=== PATIENT | female | born 2000 | race African-American/Black ===

== ENCOUNTER 2021-03-16 11:52 | Emergency (ER) | payer SELFPAY ==
[~2021-03-16] VITALS: Ht 167 cm; Wt 61.0 kg
--- NOTE | 2021-03-16 12:11 | ED Abdominal Pain ---
General Chief Complaint: Abdominal/GI Problems Stated Complaint: LTQ PAIN Source of Information: Patient Exam Limitations: No Limitations History of Present Illness Date Seen by Provider: Mar 16, 2021 Time Seen by Provider: 11:55 Initial Comments 20yoF with no significant PMH coming in due to LLQ pain. This started roughly 2 days ago and has been intermittent. The pain is sharp, and a little bit better with Tylenol which she last took this morning. She is on her period currently. She says she has had a UTI in the past but did not feel like this. She is sexually active, but uses protection every time, and denies any unusual vaginal discharge or smell. Denies any burning with urination, flank pain, chest pain, shortness of breath, nausea, vomiting, diarrhea, fever, chills, weakness, numbness, or any other concerns. She says she drank alcohol on and this started happening shortly after that. The last time this occurred a couple months ago was when she drank alcohol at that time as well. Allergies and Home Medications Allergies Coded Allergies: No Known Drug Allergies (Unverified , 03/16/21) Patient Home Medication List Home Medication List Reviewed: Yes Review of Systems Review of Systems Constitutional: No chills, No fever EENTM: No Blurred Vision Respiratory: Denies Cough Cardiovascular: Denies Chest Pain Gastrointestinal: Abdominal Pain; Denies Diarrhea, Denies Nausea, Denies Vomiting Genitourinary: Denies Burning Musculoskeletal: no symptoms reported Skin: no symptoms reported Psychiatric/Neurological: No Symptoms Reported Endocrine: No Symptoms Reported Hematologic/Lymphatic: No Symptoms Reported All Other Systems Reviewed Negative Unless Noted: Yes Past Ficsnkz-Taairf-Aznozw Hx Patient Social History Tobacco Use?: No Substance use?: No Alcohol Use?: Yes Alcohol Frequency: Once in a while Past Medical History Surgeries: No Physical Exam Vital Signs Vital Signs - First Documented 03/16/21 11:55 Temp 35.6 Pulse 67 Resp 20 B/P (MAP) 140/83 (102) Pulse Ox 100 O2 Delivery Room Air Capillary Refill : Height/Weight/BMI Height: '" Weight: lbs. oz. kg; BMI Method: General Appearance: WD/WN, mild distress HEENT: PERRL/EOMI, normal ENT inspection, pharynx normal Neck: non-tender, full range of motion, supple, normal inspection Respiratory: chest non-tender, lungs clear, normal breath sounds, no respiratory distress, no accessory muscle use Cardiovascular: regular rate, rhythm, no edema, no murmur Gastrointestinal: normal bowel sounds, non tender, soft; No distended, No guarding, No rebound Extremities: normal range of motion, non-tender, normal inspection, no pedal edema, no calf tenderness, normal capillary refill Back: normal inspection, no CVA tenderness, no vertebral tenderness Neurologic/Psychiatric: no motor/sensory deficits, alert, normal mood/affect Skin: normal color, warm/dry Lymphatic: no adenopathy Progress/Results/Core Measures Results/Orders Lab Results Laboratory Tests Test 03/16/21 11:56 03/16/21 14:10 Range/Units Urine Color YELLOW Urine Clarity CLEAR Urine pH 6.0 5-9 Urine Specific [place] >=1.030 1.016-1.022 Urine Protein NEGATIVE NEGATIVE Urine Glucose (UA) NEGATIVE NEGATIVE Urine Ketones NEGATIVE NEGATIVE Urine Nitrite NEGATIVE NEGATIVE Urine Bilirubin NEGATIVE NEGATIVE Urine Urobilinogen 0.2 < = 1.0 MG/DL Urine Leukocyte Esterase NEGATIVE NEGATIVE Urine RBC (Auto) NEGATIVE NEGATIVE Urine RBC 0-2 /HPF Urine WBC 0-2 /HPF Urine Squamous Epithelial Cells 2-5 /HPF Urine Crystals NONE /LPF Urine Bacteria NEGATIVE /HPF Urine Casts NONE /LPF Urine Mucus MODERATE H /LPF Urine Culture Indicated NO White Blood Count 8.7 4.3-11.0 10^3/uL Red Blood Count 4.84 3.80-5.11 10^6/uL Hemoglobin 12.7 11.5-16.0 g/dL Hematocrit 40 35-52 % Mean Corpuscular Volume 82 80-99 fL Mean Corpuscular Hemoglobin 26 25-34 pg Mean Corpuscular Hemoglobin Concent 32 32-36 g/dL Red Cell Distribution Width 13.3 10.0-14.5 % Platelet Count 220 130-400 10^3/uL Mean Platelet Volume 9.5 9.0-12.2 fL Neutrophils (%) (Auto) 83 H 42-75 % Lymphocytes (%) (Auto) 12 12-44 % Monocytes (%) (Auto) 4 0-12 % Eosinophils (%) (Auto) 0 0-10 % Basophils (%) (Auto) 0 0-10 % Neutrophils # (Auto) 7.2 1.8-7.8 X 10^3 Lymphocytes # (Auto) 1.0 1.0-4.0 X 10^3 Monocytes # (Auto) 0.4 0.0-1.0 X 10^3 Eosinophils # (Auto) 0.0 0.0-0.3 10^3/uL Basophils # (Auto) 0.0 0.0-0.1 10^3/uL My Orders Orders - YESSY PARISH MD Urine Bedside (03/16/21 12:07) Ua Culture If Indicated (03/16/21 12:07) Ketorolac Injection (Toradol Injection) (03/16/21 12:45) Us Non Ob Pelvis Comp/Transvag (03/16/21 12:35) Cbc With Automated Diff (03/16/21 13:22) Comprehensive Metabolic Panel (03/16/21 13:22) Ct Abdomen/Pelvis W (03/16/21 13:22) Morphine Injection (Morphine Injection (03/16/21 13:32) Ondansetron Injection (Zofran Injectio (03/16/21 13:45) Iohexol Injection (Omnipaque 350 Mg/Ml 1 (03/16/21 13:45) Received Contrast (Hold Metformin- Contr (03/16/21 13:45) Sodium Chloride Flush (Catheter Flush Sy (03/16/21 13:45) Ns (Ivpb) (Sodium Chloride 0.9% Ivpb Bag (03/16/21 13:45) Medications Given in ED Current Medications Medications Dose Ordered Sig/Ronnie Route Start Time Stop Time Status Last Admin Dose Admin Iohexol 100 ml ONCE ONCE IV 03/16/21 13:45 03/16/21 13:46 DC 03/16/21 14:25 100 ML Ketorolac Tromethamine 15 mg ONCE ONCE IM 03/16/21 12:45 03/16/21 12:46 DC 03/16/21 12:50 15 MG Ondansetron HCl 4 mg ONCE ONCE IVP 03/16/21 13:45 03/16/21 13:46 DC 03/16/21 14:09 4 MG Sodium Chloride 10 ml NEEDED PRN IV 03/16/21 13:45 03/16/21 14:25 10 ML Sodium Chloride 100 ml ONCE ONCE IV 03/16/21 13:45 03/16/21 13:46 DC 03/16/21 14:25 100 ML Vital Signs/I&O 03/16/21 11:55 Temp 35.6 Pulse 67 Resp 20 B/P (MAP) 140/83 (102) Pulse Ox 100 O2 Delivery Room Air Progress Progress Note : Progress Note 20-year-old female with above history coming in due to left lower quadrant pain. ABCs were intact and vitals were stable on presentation. Physical exam with a soft and nontender abdomen when she is distracted. Departure Impression Primary Impression: Ovarian mass Disposition: HOME, SELF-CARE Condition: Stable Departure-Patient Inst. Decision time for Depature: 14:45 Referrals: NO,LOCAL PHYSICIAN (PCP) Primary Care Physician GRAHAM SALINAS DO Patient Instructions: Ovarian Cysts Add. 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 Please call an LOAD OUT PERSON of your choice, I gave you the information for [address] in [place] that is very good named Dr. Salinas. I would call tomorrow to schedule an appointment to discuss removing this. These typically are not cancerous and not dangerous, but do cause pain. Take ibuprofen 600 mg every 6 hours for pain. You can take Tylenol 1000 mg every 6-8 hours on top of this for pain. Work/School Note: School/Childcare Release Date Seen in the Emergency Department: Mar 16, 2021 Time Dismissed from Emergency Department: 14:46 Return to School: Mar 18, 2021 Restrictions: No Sports-Until Released YESSY PARISH MD Mar 16, 2021 12:11
[2021-03-16 12:38] LABS: BILIRUBIN,URINE NEGATIVE (NEGATIVE); CLARITY,URINE CLEAR; COLOR,URINE YELLOW; GLUCOSE, URINE (UA) NEGATIVE (NEGATIVE); KETONES,URINE NEGATIVE (NEGATIVE); LEUKOCYTE ESTERASE ,URINE NEGATIVE (NEGATIVE); NITRITE,URINE NEGATIVE (NEGATIVE); PROTEIN,URINE NEGATIVE (NEGATIVE)
[2021-03-16] MEDS ORDERED: KETOROLAC 30 MG/ML VIAL IM ONE (12:45)
[2021-03-16 13:06] LABS: BACTERIA,URINE NEGATIVE /HPF; RBC,URINE 0-2 /HPF; WBC,URINE 0-2 /HPF
[2021-03-16] MEDS ORDERED: morphine INJ 10 MG/ML 1ML (SYR OR VIAL) IVP STA (13:32)
[2021-03-16] MEDS ORDERED: IOHEXOL 350 MG/ML 100 ML (OMNIPAQUE 350) VIAL IV ONE (13:45)
[2021-03-16] MEDS ORDERED: HOLD METFORMIN - RECEIVED CONTRAST 20 ML VIAL IV SCH (13:45)
[2021-03-16] MEDS ORDERED: CATHETER FLUSH 10 ML SYR IV PRN (13:45)
[2021-03-16] MEDS ORDERED: ONDANSETRON 4 MG/2 ML (SDV) Z0FRAN IVP ONE (13:45)
[2021-03-16] MEDS ORDERED: NS 100 ML (IVPB) BAG IV ONE (13:45)
--- NOTE | 2021-03-16 13:45 | Diagnostic Imaging Report ---
PROCEDURE: Pelvic comp/transvaginal sonogram. TECHNIQUE: Complete transabdominal and transvaginal pelvic ultrasound was performed. In addition, limited pelvic Doppler was performed. INDICATION: Severe left lower quadrant pain. FINDINGS: The uterus measures 5.7 x 3.3 x 3.3 cm. The endometrium is 8 mm in thickness. No myometrial mass is identified. No intrauterine gestational sac is identified. The left ovary measures 3.7 x 2.8 x 4.0 cm and the right ovary measures 3.3 x 1.5 x 3.6 cm. The ovaries contain small follicles and show blood flow. There is a heterogeneous hyperechoic mass superior to the uterus near the midline measuring approximately 9.2 x 7.0 x 9.2 cm. This could represent a large dermoid. A small amount of free fluid is present. No other abnormalities are seen. IMPRESSION: There is a large midline mass which is fairly homogeneous and hyperechoic. This may represent a fat-containing mass such as a large dermoid. A CT study would be useful for further characterization. No other significant abnormality is seen. Dictated by: Dictated on workstation # [id number]
[2021-03-16 14:32] LABS: BASOPHILS % (AUTO) 0 % (0-10); EOSINOPHILS % (AUTO) 0 % (0-10); HEMATOCRIT 40 % (35-52); HEMOGLOBIN 12.7 g/dL (11.5-16.0); LYMPHOCYTES % (AUTO) 12 % (12-44); MEAN CORPUSCULAR HEMOGLOBIN 26 pg (25-34); MEAN CORPUSCULAR HGB CONC 32 g/dL (32-36); MEAN CORPUSCULAR VOLUME 82 fL (80-99); MEAN PLATELET VOLUME 9.5 fL (9.0-12.2); MONOCYTES # (AUTO) 0.4 X 10^3 (0.0-1.0); MONOCYTES % (AUTO) 4 % (0-12); NEUTROPHILS # (AUTO) 7.2 X 10^3 (1.8-7.8); NEUTROPHILS % (AUTO) 83 % (42-75); PLATELET COUNT 220 10^3/uL (130-400); WHITE BLOOD COUNT 8.7 10^3/uL (4.3-11.0)
--- NOTE | 2021-03-16 14:38 | Diagnostic Imaging Report ---
PROCEDURE: CT abdomen and pelvis with contrast. TECHNIQUE: Multiple contiguous axial images were obtained through the abdomen and pelvis after administration of intravenous contrast. Auto Exposure Controls were utilized during the CT exam to meet ALARA standards for radiation dose reduction. All CT scans use one or more of the following dose optimizing techniques: automated exposure control, MA and/or KvP adjustment based on patient size and exam type or iterative reconstruction. INDICATION: Pelvic lesion and pain. FINDINGS: There is a very large right adnexal mass with soft tissue fatty and calcified components, presumed to reflect a very large dermoid. In axial plane, the mass measures 8.8 x 8.3 cm and measures about 9.4 cm cephalocaudal. Uterus and left adnexa are unremarkable. The air-containing appendix is normal. There is no bowel, biliary, or urinary tract obstruction. There is no ascites. No inflammatory changes, hemorrhage, or acute features to suggest a torsion. Liver, gallbladder, bile ducts, spleen, adrenals, and pancreas are all unremarkable. The unobstructed kidneys are normal. Osseous structures and lung bases are nonacute. IMPRESSION: 1. Large right adnexal mass, presumed ovarian and favored to reflect a dermoid, has soft tissue fatty and calcified components without evidence for lesion or rupture or torsion. 2. No other significant finding. Dictated by: Dictated on workstation # [id number]
[2021-03-16 14:47] VITALS: BP 116/72
[2021-03-16 14:58] LABS: POTASSIUM 3.8 MMOL/L (3.6-5.0); SODIUM 137 MMOL/L (135-145)
[2021-03-16 14:59] LABS: ALANINE AMINOTRANSFERASE 20 U/L (0-55); ALBUMIN 4.7 GM/DL (3.2-4.5); ALKALINE PHOSPHATASE 68 U/L (40-136); BILIRUBIN,TOTAL 0.4 MG/DL (0.1-1.0); BUN/CREATININE RATIO 16; CALCIUM 9.6 MG/DL (8.5-10.1); CARBON DIOXIDE 21 MMOL/L (21-32); CHLORIDE 103 MMOL/L (98-107); CREATININE SERUM 0.96 MG/DL (0.60-1.30); GFR ESTIMATED 87; GLUCOSE 133 MG/DL (70-105); TOTAL PROTEIN 7.7 GM/DL (6.4-8.2)
== END 2021-03-16 14:49 | disposition home or self-care (01) ==
LOC: ER FS 11:55
DX: N83.9 Noninflammatory disorder of ovary, fallopian tube and broad ligament, unspecified (principal)
CPT/HCPCS: 36415; 74177; 76830; 76856; 80053; 81000; 84703; 85025; 96372; 96374; 96375

== ENCOUNTER 2022-07-14 05:41 | Outpatient (CLI) | payer SELFPAY ==
[~2022-07-14] VITALS: Ht 167.7 cm; Wt 61.8 kg
== END 2022-08-10 13:47 | disposition home or self-care (01) ==
LOC: PREOP 05:41
PROVIDERS: ATTEND Obstetrics & Gynecology
DX: Z01.818 Encounter for other preprocedural examination (principal)

== ENCOUNTER 2022-08-17 08:00 | Day surgery (SDC) | payer OTHER ==
[~2022-08-17] VITALS: Ht 167.7 cm; Wt 61.8 kg
[2022-08-17] VITALS (12 sets, daily range): BP systolic 87–135; BP diastolic 50–77
[2022-08-17] MEDS ORDERED: ONDANSETRON 4 MG/2 ML (SDV) Z0FRAN ONE (08:22)
[2022-08-17] MEDS ORDERED: LIDOCAINE PF 2% 5 ML (XYLOCAINE) VIAL ONE (08:22)
[2022-08-17] MEDS ORDERED: ROCURONIUM 50 MG/5 ML (ZEMURON) VIAL IV ONE (08:22)
[2022-08-17] MEDS ORDERED: fentaNYL INJ 100 MCG/2 ML AMP ONE (08:22)
[2022-08-17] MEDS ORDERED: proPOfol 200 MG/20 ML (DIPRIVAN) VIAL IV ONE (08:22)
[2022-08-17] MEDS ORDERED: MIDAZOLAM 2 MG/2 ML (VERSED) VIAL ONE (08:23)
[2022-08-17] MEDS: LACTATED RINGERS 1,000 ML IV PRN ×3 (09:01→16:04)
[2022-08-17 09:23] LABS: BASOPHILS % (AUTO) 1 % (0-10); EOSINOPHILS # (AUTO) 0.1 10^3/uL (0.0-0.3); EOSINOPHILS % (AUTO) 2 % (0-10); HEMATOCRIT 39 % (35-52); HEMOGLOBIN 12.9 g/dL (11.5-16.0); LYMPHOCYTES # (AUTO) 2.9 10^3/uL (1.0-4.0); LYMPHOCYTES % (AUTO) 56 % (12-44); MEAN CORPUSCULAR HEMOGLOBIN 27 pg (25-34); MEAN CORPUSCULAR HGB CONC 33 g/dL (32-36); MEAN CORPUSCULAR VOLUME 81 fL (80-99); MEAN PLATELET VOLUME 9.8 fL (9.0-12.2); MONOCYTES # (AUTO) 0.3 10^3/uL (0.0-1.0); MONOCYTES % (AUTO) 6 % (0-12); NEUTROPHILS # (AUTO) 1.8 10^3/uL (1.8-7.8); NEUTROPHILS % (AUTO) 35 % (42-75); PLATELET COUNT 204 10^3/uL (130-400); WHITE BLOOD COUNT 5.1 10^3/uL (4.3-11.0)
--- NOTE | 2022-08-17 09:58 | Progress Note-Pre Operative ---
Pre-Operative Progress Note Date of Available H&P: Aug 17, 2022 Date H&P Reviewed: Aug 17, 2022 Time H&P Reviewed: 09:40 History & Physical: H&P Reviewed, Patient Examed, No changes noted Pre-Operative Diagnosis: Pelvic mass JHOANA ACEVEDO DO Aug 17, 2022 09:58
[2022-08-17] MEDS ORDERED: TETANUS,DIPTH,PERTUSS P/F (BOOSTRIX) 0.5 ML VIAL IM SCH (10:00)
[2022-08-17] MEDS ORDERED: NALOXONE 0.4 MG/ML 1 ML (NARCAN) VIAL IV PRN (10:00)
[2022-08-17] MEDS ORDERED: HYDROmorphone 2 MG/ML VIAL (DILAUDID) IV PRN (10:00)
[2022-08-17] MEDS ORDERED: KETOROLAC 30 MG/ML VIAL IV SCH (10:00)
[2022-08-17] MEDS ORDERED: ONDANSETRON 4 MG/2 ML (SDV) Z0FRAN IVP PRN ×2 (10:00→11:15)
--- NOTE | 2022-08-17 10:02 | Discharge Inst-Women's Service ---
Discharge Inst-Women's Serv Depart Medication/Instructions New, Converted or Re-Newed RX: Transmitted to Pharmacy Final Diagnosis POD 1 Ex lap removal pelvic mass Problems Reviewed?: Yes Consults/Follow Up Additional Follow Up: Yes Orders/Referrals Dr. Matthew in 7-10 days and in 6 weeks Activity Activity: Activity as Tolerated Driving Instructions: No Driving for 1 Week NO SMOKING: NO SMOKING Nothing Inside Vagina: No Douching, No [place], No Tampons Diet Discharge Diet: No Restrictions Symptoms to Report to : Bleeding Excessive, Pain Increased, Fever Over 101 Degrees F, Vaginal Bleeding Increase, Questions/Concerns For Any Problems or Questions: Contact Your Physician Skin/Wound Care Infection Signs and Symptoms: Increased Redness, Foul Odor of Wound, Increased Drainage, Skin Itchy or Has a Rash, Increased Swelling, Temperature Above 101 F Operative Area Clean and Dry: Keep Incision Clean/Dry Stitches/Duke/Dermabond: Dermabond, Care of Stitches Bathing Instructions: JHOANA Townsend DO Aug 17, 2022 10:02
[2022-08-17] MEDS ORDERED: ACHD5005 PO (10:03)
[2022-08-17] MEDS ORDERED: ceFAZolin INJECTION 1,000 MG VIAL IV ONE (10:03)
[2022-08-17] MEDS ORDERED: IBUP-844 PO (10:03)
[2022-08-17] MEDS ORDERED: DOCU100C37 PO (10:03)
[2022-08-17] MEDS ORDERED: ceFAZolin INJECTION 2,000 MG ONE (10:06)
[2022-08-17] MEDS ORDERED: HYDROmorphone 2 MG/ML VIAL (DILAUDID) ONE (10:10)
[2022-08-17] MEDS ORDERED: ESMOLOL 100 MG/10 ML (BREVIBLOC) VIAL ONE (10:17)
[2022-08-17] MEDS ORDERED: NEOSTIGMINE (BLOXIVERZ ) 1 MG/1ML 10 ML VIAL ONE (10:29)
[2022-08-17] MEDS ORDERED: GLYCOPYRROLATE 0.2 MG/ML (ROBINUL) 2 ML VIAL ONE (10:29)
[2022-08-17] MEDS ORDERED: SEVOFLURANE (ULTANE) 15 ML INHAL SOLN ONE ×2 (10:41→10:52)
[2022-08-17] MEDS ORDERED: KETOROLAC 30 MG/ML VIAL ONE (11:11)
[2022-08-17] MEDS: KETOROLAC 30 MG/ML VIAL IV SCH ×3 (11:14→23:17)
[2022-08-17] MEDS ORDERED: HYDROmorphone 2 MG/ML VIAL (DILAUDID) IV ONE (11:15)
[2022-08-17] MEDS ORDERED: morphine INJ 10 MG/ML 1ML (SYR OR VIAL) IVP ONE (11:15)
[2022-08-17] MEDS: HYDROcodone/APAP 5 MG/325 MG (LORTAB) TAB PO PRN ×2 (13:42→20:18)
[2022-08-17] MEDS: CATHETER FLUSH 10 ML SYR IV SCH ×2 (14:07→22:00)
--- NOTE | 2022-08-17 14:35 | Anesthesia-General Post-Op ---
General Patient Condition Mental Status/LOC: Same as Preop Cardiovascular: Satisfactory Nausea/Vomiting: Absent Respiratory: Satisfactory Pain: Controlled Complications: Absent Post Op Complications Complications None Follow Up Care/Instructions Patient Instructions None needed. Anesthesia/Patient Condition Patient Condition Patient is doing well, no complaints, stable vital signs, no apparent adverse anesthesia problems. No complications reported per nursing. ERIS KAHN DO Aug 17, 2022 14:35
--- NOTE | 2022-08-17 20:00 | OPERATIVE REPORT ---
DATE OF SERVICE: 08/17/2022 PREOPERATIVE DIAGNOSIS: A 21-year-old female with pelvic mass measuring 9 cm on CAT scan. POSTOPERATIVE DIAGNOSIS: A 21-year-old female with pelvic mass measuring 9 cm on CAT scan. PROCEDURE: Exploratory laparotomy with removal of left ovary and pelvic mass. SURGEON: Jaciel Matthew DO FRONT SIGHT ATTACHER: Bessy Armstrong, who was necessary for manipulation and retraction throughout the procedure. ANESTHESIA: General endotracheal. ESTIMATED BLOOD LOSS: Minimal. URINE OUTPUT: 50 mL clear at the end of the procedure. FLUIDS: 1200 mL lactated Ringer's solution. FINDINGS: Grossly normal-appearing right ovary, bilateral fallopian tubes and uterus, enlarged left ovary with a solid and cystic mass within the capsule of the ovary. SPECIMEN SENT: Left ovary. INDICATIONS FOR PROCEDURE: This 21-year-old female is the patient who had sought care in my office for ongoing issues with chronic pelvic pain. She was noticing more pelvic pain coming from the left when she was running and exercising. CAT scan evaluation identified what appeared to be a dermoid cyst in the pelvis measuring 9 x 9 x 4 cm. I discussed with the patient removal of this. Due to the size, we discussed laparotomy in order to do so. Risks of the procedure were discussed with the patient in detail including risk of bleeding, infection, damage to surrounding structures including but not limited to bowel, bladder, ureter, kidneys, possible need for reoperation, postoperative complications that may occur, the malignant potential was discussed. After all of her questions were answered, consent was obtained, the patient was taken to the operating room. OPERATIVE REPORT IN DETAIL: Once in the operating room, anesthesia was administered and found to be adequate. She was placed in dorsal lithotomy position, prepped and draped in normal sterile fashion where a timeout was performed. A Mohr catheter was placed using sterile technique. I then made a Pfannenstiel skin incision that was approximately 5 cm wide with a knife and carried down to underlying fascia using Bovie cautery. The fascial incision extended laterally using Bovie cautery. The superior aspect of the fascial incision was then grasped with Caleb clamps, tented up and dissected off the underlying rectus muscles. The inferior aspect of the fascial incision was then grasped with Caleb clamps, tented up and dissected off the underlying rectus muscles. Rectus muscles were dissected down the midline using sharp dissection, which exposes the peritoneum, which I entered bluntly using blunt traction. A mini Behzad ring retractor was placed within the peritoneal incision, which offers excellent lateral sidewall retraction. I identified the left ovary by elevating up and out through the incision. I attempted to shell the capsule of the ovary away from the underlying cystic mass; however, in the process of doing so, a small amount of rupture is noted. It was contained at which point I decided to remove that ovary due to the size of this mass and the inability to separate the ovary tissue from the tumor. I did this by taking the LigaSure device across the infundibulopelvic ligament, which I then sealed and transected using the LigaSure device. The entire specimen is sent as left ovary and mass. There is no active bleeding noted from the infundibulopelvic ligament pedicle. The right ovary is identified and the uterus were identified and appeared to be grossly normal. I then copiously irrigated the pelvis using normal saline. There is no active bleeding noted from any of my dissection planes. I placed Interceed over the left sided IP pedicle. I removed the Behzad ring retractor and then proceeded with closing the peritoneum using 3-0 Vicryl suture in a running fashion. Rectus muscles were reapproximated using 3-0 Vicryl suture in interrupted fashion. The fascia was reapproximated using 0 Vicryl suture in a running fashion. The skin was reapproximated using 4-0 Monocryl running subcuticular. Dermabond was applied and a sterile dressing with adhesed with white tape. Mohr catheter was removed at the end of the procedure. Two grams Ancef were given preoperatively for infection prophylaxis. Lap and sponge counts were correct at the end of the procedure. Instrument counts correct as well. Job ID: [id number] DocumentID: [id number] Dictated Date: 08/17/2022 13:10:58 Screen Roller Date: 08/17/2022 19:58:00 Dictated By: DO DANIEL WHITEHEAD
[2022-08-17] MEDS: DOCUSATE SODIUM 100 MG (COLACE) CAP PO SCH (20:18)
[2022-08-18 05:31] LABS: BASOPHILS % (AUTO) 0 % (0-10); EOSINOPHILS % (AUTO) 0 % (0-10); HEMATOCRIT 35 % (35-52); HEMOGLOBIN 11.6 g/dL (11.5-16.0); LYMPHOCYTES # (AUTO) 1.4 10^3/uL (1.0-4.0); LYMPHOCYTES % (AUTO) 11 % (12-44); MEAN CORPUSCULAR HEMOGLOBIN 28 pg (25-34); MEAN CORPUSCULAR HGB CONC 33 g/dL (32-36); MEAN CORPUSCULAR VOLUME 82 fL (80-99); MEAN PLATELET VOLUME 10.3 fL (9.0-12.2); MONOCYTES # (AUTO) 1.1 10^3/uL (0.0-1.0); MONOCYTES % (AUTO) 8 % (0-12); NEUTROPHILS % (AUTO) 81 % (42-75); PLATELET COUNT 219 10^3/uL (130-400); WHITE BLOOD COUNT 13.6 10^3/uL (4.3-11.0)
[2022-08-18] MEDS: KETOROLAC 30 MG/ML VIAL IV SCH (05:34)
[2022-08-18 05:38] VITALS: BP 109/59
[2022-08-18] MEDS: DOCUSATE SODIUM 100 MG (COLACE) CAP PO SCH (08:13)
[2022-08-18 08:15] VITALS: BP 121/71
[2022-08-18 10:25] VITALS: BP 121/71
[2022-08-18] MEDS ORDERED: IBUPROFEN 600 MG (MOTRIN) TAB PO SCH (11:00)
== END 2022-08-18 10:25 | disposition home or self-care (01) ==
LOC: SDC 08:00 → WS 12:00 → SDC 08-18 10:25
PROVIDERS: ATTEND Obstetrics & Gynecology
DX: D27.1 Benign neoplasm of left ovary (principal); N83.8 Other noninflammatory disorders of ovary, fallopian tube and broad ligament; G89.29 Other chronic pain; R10.2 Pelvic and perineal pain
CPT/HCPCS: 58720; 84703; 85025 ×2; 86850; 86900; 86901; 87081; C1765; 36415